=== PATIENT | male | born 1990 | race Caucasian/White ===

== ENCOUNTER 2016-07-15 00:31 | Emergency (ER) | payer BC, OTHER ==
[~2016-07-15] VITALS: Ht 180.3 cm; Wt 79.4 kg
[~2016-07-15 00:31] MED LIST: KLONOPIN1 MG ORAL; XANAX1 MG ORAL
[2016-07-15] MEDS ORDERED: Isentress 400mg tab ORAL STA (01:24)
[2016-07-15] MEDS ORDERED: Emitricitabine/Tenofovir 200/300mg tab ORAL ONE (01:30)
[2016-07-15] MEDS ORDERED: ISENTRESS400 MG ORAL (01:31)
[2016-07-15] MEDS ORDERED: TRUVADA 200 MG1 EAC1 ORAL (01:31)
--- NOTE | 2016-07-15 01:32 | Emergency Room Report ---
History of Present Illness General Chief Complaint: General Complaint Source: Patient Present Illness HPI Is a 25-year-old male with no significant past medical history. He presents with chief complaint of HIV exposure. He had unprotected receptive anal sex on July 13 at 3 AM. He found out that his partner was HIV positive this afternoon. [facility] unable to [facility] because he was working. He is here now. Denies any other complaint. No fever or chills. No nausea no vomiting. Never had this problem before. He is HIV negative. Allergies: Coded Allergies: DOXYCYCLINE (Verified Allergy, Intermediate, stomach upset, 01/05/14) Patient History Past Medical History: see triage record, old chart reviewed Past Surgical History: none Pertinent Family History: none Social History: Denies: smoking Immunizations: other Reviewed Nursing Documentation: PMH: Agreed, PSxH: Agreed Nursing Documentation-PMH Past Medical History: No Stated History Hx Cardiac Problems: Yes - atrial reconstruction Hx Cancer: No Hx Gastrointestinal Problems: No Hx Neurological Problems: No Review of Systems Eye: Denies: blurred vision, eye pain ENT: Denies: ear pain, nose congestion, throat swelling Respiratory: Denies: cough, shortness of breath Cardiovascular: Denies: chest pain, palpitations Gastrointestinal: Denies: abdominal pain, diarrhea, nausea, vomiting Musculoskeletal: Denies: back pain, joint pain Skin: Denies: rash Neurological: Denies: headache, numbness Endocrine: Denies: increased thirst, increased urine Hematologic/Lymphatic: Denies: easy bruising All Other Systems: negative except mentioned in HPI Physical Exam Vital Signs Date Time Temp Pulse Resp B/P Pulse Ox O2 Delivery O2 Flow Rate FiO2 07/15/16 00:53 98.1 60 16 142/77 100 Room Air vitals normal Sp02 EP Interpretation: reviewed, normal General Appearance: well appearing, no apparent distress, alert Head: normocephalic, atraumatic Eyes: bilateral eye EOMI, bilateral eye PERRL ENT: hearing grossly normal, normal pharynx Neck: full range of motion, supple, no meningismus Respiratory: chest non-tender, lungs clear, normal breath sounds Cardiovascular #1: regular rate, rhythm, no murmur Gastrointestinal: normal bowel sounds, non tender, no mass, no organomegaly, no bruit, non-distended Musculoskeletal: back normal, gait/station normal, normal range of motion Psychiatric: mood/affect normal Skin: warm/dry Medical Decision Making Diagnostic Impression: Primary Impression: HIV exposure from body fluids ER Course Patient has HIV exposure from receptive anal sex. He is high risk for developing HIV. We'll go ahead and start PEP. He has no complaint right now. Last Vital Signs Date Time Temp Pulse Resp B/P Pulse Ox O2 Delivery O2 Flow Rate FiO2 07/15/16 00:53 98.1 60 16 142/77 100 Room Air Status: improved Disposition: HOME, SELF-CARE Condition: Stable Scripts Raltegravir (Isentress) 400 Mg Tablet 400 MG ORAL EVERY 12 HOURS, #6 TAB Prov: ALBERTO CORLEY M.D. 07/15/16 Raltegravir (Isentress) 400 Mg Tablet 400 MG ORAL EVERY 12 HOURS, #60 TAB Prov: ALBERTO CORLEY M.D. 07/15/16 Emtricitabine/Tenofovir 200-300MG* (TRUVADA 200-300MG*) 1 Each Tablet 1 TAB ORAL DAILY, #3 TAB Prov: ALBERTO CORLEY M.D. 07/15/16 Emtricitabine/Tenofovir 200-300MG* (TRUVADA 200-300MG*) 1 Each Tablet 1 TAB ORAL DAILY, #30 TAB Prov: ALBERTO CORLEY M.D. 07/15/16 Referrals: NOT CHOSEN [facility]/,REFERRING (PCP) Additional Instructions: Followup with your DrKylie within 72 hours for recheck. You may call back here for results of HIV testing. Return if symptom worsen. You may fill the three-day supply some meds first. ALBERTO CORLEY M.D. July 15, 2016 01:32
[2016-07-15 01:47] VITALS: BP 126/79
[2016-07-15 01:48] VITALS: BP 142/77
== END 2016-07-15 01:49 | disposition home or self-care (01) ==
LOC: EMR 01:13
DX: Z20.6 Contact with and (suspected) exposure to human immunodeficiency virus [HIV] (principal)
CPT/HCPCS: 86703; 99284